=== PATIENT | female | born 1990 | race Caucasian/White ===

== ENCOUNTER 2023-01-10 06:19 | Day surgery (SDC) | payer OTHER ==
[2023-01-10] MEDS ORDERED: Lactated Ringers 1,000 ML IV SCH (07:00)
[2023-01-10] MEDS ORDERED: Nozin Nasal Sanitizer NASBOTH ONE (07:00)
[2023-01-10 07:03] LABS: ESTIMATED GFR 100 mL/min (>60)
[2023-01-10] MEDS ORDERED: Ondansetron 4 MG/2 ML SDV ONE (07:11)
[2023-01-10] MEDS ORDERED: Midazolam 1 MG/ML 2 ML SDV ONE (07:11)
[2023-01-10] MEDS ORDERED: fentaNYL 100 MCG/2 ML SDV ONE ×2 (07:11→08:34)
[2023-01-10] MEDS ORDERED: Dexamethasone 4 MG/ML SDV ONE (07:15)
[2023-01-10] MEDS ORDERED: Bupivacaine 0.5% 50 ML MDV ONE (07:26)
[2023-01-10] MEDS ORDERED: ceFAZolin 1 GM in Premix Bag 1 BAG IV ONE (08:00)
[2023-01-10] MEDS ORDERED: Ketorolac 30 MG/ML SDV ONE (08:27)
[2023-01-10] MEDS ORDERED: Propofol 200 MG/20 ML SDV ONE (09:00)
[2023-01-10] MEDS ORDERED: Acetaminophen/HYDROcodone 325-5 MG Tab PO ONE (10:10)
== END 2023-01-10 11:28 | disposition home or self-care (01) ==
LOC: JP.SDS 06:19
PROVIDERS: ATTEND Specialist
DX: S83.242A Other tear of medial meniscus, current injury, left knee, initial encounter (principal); F41.9 Anxiety disorder, unspecified; X58.XXXA Exposure to other specified factors, initial encounter
CPT/HCPCS: 29870; 36415; 80053; 84703; 85025; 85610; 85730; A9270; J0690; J1100; J1885; J2250; J2405; J2704; J3010; J3490; J7120